=== PATIENT | female | born 1930 | race Two or more races ===

== ENCOUNTER 2021-11-08 22:03 | Inpatient (IN) | payer MEDICARE, OTHER ==
[~2021-11-08] VITALS: Ht 157.5 cm; Wt 72.2 kg
[2021-11-08] MEDS ORDERED: IV NS 1000 ML 1,000 ML IV ONE (22:15)
[2021-11-08 22:43] LABS: HEMATOCRIT 40.1 % (31.2-41.9); MEAN CORPUSCULAR HEMOGLOBIN 29.7 uug (24.7-32.8); MEAN CORPUSCULAR VOLUME 89.9 fL (75.5-95.3); PLATELET COUNT (AUTO) 161 K/uL (179-408)
[2021-11-08 22:55] LABS: ALANINE AMINOTRANSFERASE 18 U/L (14-59); ALKALINE PHOSPHATASE 139 U/L (50-136); ASPARTATE AMINOTRANSFERASE 11 U/L (15-37); BILIRUBIN,DIRECT 0.3 mg/dL (0.0-0.2); CARBON DIOXIDE 25 mmol/L (21-32); CHLORIDE 103 mmol/L (98-107); TOTAL PROTEIN, SERUM 7.4 g/dL (6.4-8.2); UREA NITROGEN, BLOOD 13 mg/dL (7-18)
[2021-11-08 22:58] LABS: MAGNESIUM 1.7 mg/dL (1.8-2.4)
[2021-11-08 23:09] LABS: GLUCOSE 317 mg/dL (74-106)
[2021-11-08] MEDS: MAGNESIUM SULFATE/D5W 100 ML IV SCH (23:15)
[2021-11-09] MEDS: MAGNESIUM SULFATE/D5W 100 ML IV SCH ×2 (00:15→01:15)
[2021-11-09] MEDS ORDERED: ATOR20TA PO ×2 (00:15→18:10)
[2021-11-09] MEDS ORDERED: OLME40TA12 PO ×2 (00:15→18:10)
[2021-11-09] MEDS ORDERED: OXYB10TA30 PO ×2 (00:15→18:10)
[2021-11-09] MEDS ORDERED: MAGNESIUM HYDROXIDE 30 ML LIQUID UDC PO PRN (00:30)
[2021-11-09] MEDS ORDERED: ONDANSETRON 4 MG/2 ML VIAL IV PRN (00:30)
[2021-11-09] MEDS ORDERED: IV NS 1000 ML 1,000 ML IV PRN (00:30)
[2021-11-09] MEDS ORDERED: REMEDY ESSENTIAL ZINC PASTE 113 GM TP PRN (00:30)
[2021-11-09] MEDS ORDERED: DILTIAZEM HCL 25 MG IV IV ONE (02:30)
[2021-11-09] MEDS ORDERED: DILTIAZEM HCL 25 MG IV ONE (02:35)
[2021-11-09] MEDS ORDERED: FUROSEMIDE 40 MG/4 ML VIAL ONE (02:39)
[2021-11-09] MEDS ORDERED: FUROSEMIDE 20 MG/2 ML VIAL ONE (02:40)
[2021-11-09] MEDS ORDERED: ONDANSETRON 4 MG/2 ML VIAL ONE (02:44)
[2021-11-09] MEDS ORDERED: MORPHINE SULFATE 2 MG/1 ML DISP.SYRIN ONE (02:44)
[2021-11-09] MEDS ORDERED: MORPHINE SULFATE 4 MG/1 ML DISP.SYRIN ONE (02:44)
[2021-11-09] MEDS ORDERED: FUROSEMIDE 20 MG/2 ML VIAL IV ONE (02:45)
[2021-11-09] MEDS ORDERED: MORPHINE SULFATE 4 MG/1 ML DISP.SYRIN IV ONE (02:45)
[2021-11-09] MEDS ORDERED: ONDANSETRON 4 MG/2 ML VIAL IV ONE (02:45)
[2021-11-09] MEDS ORDERED: ATORVASTATIN 20 MG TABLET PO SCH (09:00)
[2021-11-09] MEDS ORDERED: Medication Not On Formulary EA (Oxybutynin Chloride (Oxybutynin Chloride Er) 1 TAB) PO SCH (09:00)
[2021-11-09] MEDS ORDERED: LOSARTAN POTASSIUM 50 MG TABLET PO SCH (09:00)
[2021-11-09 09:47] LABS: *CLARITY,URINE CLEAR (CLEAR)
[2021-11-09 09:48] LABS: *BLOOD, URINE 1+ (NEGATIVE); *COLOR,URINE YELLOW (YELLOW); PH,URINE 5.5 (5.0-8.0); UGLUCOSE 2+ (NEGATIVE)
[2021-11-09 09:49] LABS: *BILIRUBIN,URIN NEGATIVE (NEGATIVE); *KETONES,URINE NEGATIVE (NEGATIVE); *UROBILINOGEN,URINE 0.2 E.U./dl (NORMAL); LEUKOCYTE ESTERASE ,URINE NEGATIVE (NEGATIVE); NITRITE, URINE POSITIVE (NEGATIVE)
[2021-11-09 09:58] VITALS: BP 122/57
[2021-11-09 09:58] LABS: BACTERIA,URINE MANY /HPF (NONE SEEN); SQUAMOUS EPITHELIAL CELL,UR FEW /HPF (NONE SEEN); WBC,URINE 0-3 /HPF (0-3)
[2021-11-09] MEDS: OXYBUTYNIN XL 5 MG TABSR PO SCH (10:21)
[2021-11-09] MEDS ORDERED: DEXTROSE 50% 50 ML DISP.SYRIN IV PRN (11:15)
[2021-11-09] MEDS ORDERED: FUROSEMIDE 40 MG/4 ML VIAL IV ONE (11:30)
[2021-11-09 11:46] LABS: CARBON DIOXIDE 26 mmol/L (21-32); CHLORIDE 100 mmol/L (98-107); POTASSIUM 4.2 mmol/L (3.5-5.1)
[2021-11-09 11:47] LABS: BILIRUBIN,TOTAL 1.5 mg/dL (0.2-1.0); CREATININE 1.1 mg/dL (0.6-1.3); GLUCOSE 393 mg/dL (74-106); UREA NITROGEN, BLOOD 14 mg/dL (7-18)
[2021-11-09 11:48] LABS: ALANINE AMINOTRANSFERASE 13 U/L (14-59); ALKALINE PHOSPHATASE 140 U/L (50-136); ASPARTATE AMINOTRANSFERASE 9 U/L (15-37); TOTAL PROTEIN, SERUM 7.5 g/dL (6.4-8.2)
[2021-11-09] MEDS: BLOOD SUGAR DIAGNOSTIC 1 EACH STRIP VI SCH ×3 (11:52→20:20)
[2021-11-09] MEDS: DILTIAZEM HCL 30 MG TABLET PO SCH ×2 (11:53→17:41)
[2021-11-09] MEDS: INSULIN REGULAR, HUMAN 300 UNIT/3 ML VIAL SQ PRN ×3 (11:54→20:27)
[2021-11-09 11:59] LABS: HEMATOCRIT 42.4 % (31.2-41.9); MEAN CORPUSCULAR HEMOGLOBIN 29.9 uug (24.7-32.8); MEAN CORPUSCULAR VOLUME 90.6 fL (75.5-95.3)
[2021-11-09 12:00] VITALS: BP 135/62
[2021-11-09 12:00] LABS: PLATELET COUNT (AUTO) 149 K/uL (179-408)
[2021-11-09] MEDS ORDERED: SWABABLE VALVE TRANSFER SET EA MC ONE (13:06)
[2021-11-09] MEDS ORDERED: IOHEXOL 350 100 ML INFUS..BTL ONE (13:06)
[2021-11-09] MEDS ORDERED: IV NORMAL SALINE 250 ML IV ONE (13:06)
[2021-11-09] MEDS: ENOXAPARIN SODIUM 40 MG/0.4 ML DISP.SYRIN SQ SCH (13:07)
[2021-11-09 15:39] VITALS: BP 117/50
[2021-11-09] MEDS ORDERED: SERT100T PO (18:09)
[2021-11-09] MEDS ORDERED: INSU100V7 SQ (18:09)
[2021-11-09] MEDS ORDERED: ALPR0.255 PO (18:09)
[2021-11-09] MEDS ORDERED: TRAM50TA2 PO (18:09)
[2021-11-09] MEDS ORDERED: EMPA10TA PO (18:10)
[2021-11-09] MEDS ORDERED: GLIP5TAB26 PO (18:10)
[2021-11-09] MEDS ORDERED: LIDO30AD10 TD (18:10)
[2021-11-09] MEDS ORDERED: ISOS60TA72 PO (18:10)
[2021-11-09] MEDS ORDERED: AMLO2.5T4 PO (18:10)
[2021-11-09] MEDS ORDERED: OMEP40CA21 PO (18:10)
[2021-11-09] MEDS ORDERED: CHOL500062 PO (18:10)
[2021-11-09 20:45] VITALS: BP 103/56
[2021-11-09] MEDS: ACETAMINOPHEN 325 MG TABLET PO PRN (23:02)
[2021-11-10] MEDS: DILTIAZEM HCL 30 MG TABLET PO SCH ×4 (00:41→17:20)
[2021-11-10 00:48] VITALS: BP 119/63
[2021-11-10] MEDS ORDERED: HYDROMORPHONE 1 MG/1 ML DISP.SYRIN IV PRN (01:30)
[2021-11-10] MEDS: HYDROCODONE/APAP 10-325 MG TABLET PO PRN ×2 (01:41→21:59)
[2021-11-10 04:48] VITALS: BP 117/69
[2021-11-10] MEDS: HYDROMORPHONE 1 MG/1 ML DISP.SYRIN IV PRN (05:52)
[2021-11-10 06:19] LABS: HEMATOCRIT 36.2 % (31.2-41.9); MEAN CORPUSCULAR HEMOGLOBIN 30.2 uug (24.7-32.8); MEAN CORPUSCULAR VOLUME 89.4 fL (75.5-95.3); PLATELET COUNT (AUTO) 124 K/uL (179-408)
[2021-11-10] MEDS: BLOOD SUGAR DIAGNOSTIC 1 EACH STRIP VI SCH ×4 (06:31→21:48)
[2021-11-10 06:32] LABS: CREATININE 1.2 mg/dL (0.6-1.3); MAGNESIUM 1.8 mg/dL (1.8-2.4); PHOSPHOROUS 3.6 mg/dL (2.5-4.9); POTASSIUM 3.5 mmol/L (3.5-5.1)
[2021-11-10] MEDS: INSULIN REGULAR, HUMAN 300 UNIT/3 ML VIAL SQ PRN ×4 (08:11→21:55)
[2021-11-10] MEDS: OXYBUTYNIN XL 5 MG TABSR PO SCH (08:47)
[2021-11-10] MEDS: ENOXAPARIN SODIUM 40 MG/0.4 ML DISP.SYRIN SQ SCH (08:48)
[2021-11-10] MEDS ORDERED: FUROSEMIDE 40 MG/4 ML VIAL IV ONE (10:30)
[2021-11-10 10:38] LABS: *BILIRUBIN,URIN 1+ (NEGATIVE); *BLOOD, URINE 2+ (NEGATIVE); *CLARITY,URINE CLOUDY (CLEAR); *COLOR,URINE YELLOW (YELLOW); *KETONES,URINE NEGATIVE (NEGATIVE); LEUKOCYTE ESTERASE ,URINE TRACE (NEGATIVE); NITRITE, URINE NEGATIVE (NEGATIVE); UGLUCOSE TRACE (NEGATIVE)
[2021-11-10 10:42] LABS: *CREATININE,URINE 118.8 mg/dL (30-125); *URINE TOTAL PROTEIN RANDOM 56.7 mg/dL (<150/24HR)
[2021-11-10 10:59] LABS: BACTERIA,URINE MODERATE /HPF (NONE SEEN)
[2021-11-10 11:00] LABS: SQUAMOUS EPITHELIAL CELL,UR FEW /HPF (NONE SEEN)
[2021-11-10 11:01] LABS: MUCUS,URINE NONE SEEN /LPF (0-FEW)
[2021-11-10 12:05] VITALS: BP 96/52
[2021-11-10 17:17] VITALS: BP 111/51
[2021-11-10 20:30] VITALS: BP 115/66
[2021-11-10] MEDS: ATORVASTATIN 20 MG TABLET PO SCH (21:53)
[2021-11-10] MEDS ORDERED: DEXTROSE 50% 50 ML DISP.SYRIN IV PRN (23:45)
[2021-11-11] VITALS (9 sets, daily range): BP systolic 94–140; BP diastolic 46–66
[2021-11-11] MEDS ORDERED: SUCCINYLCHOLINE CHLORIDE 200 MG/10 ML VIAL ONE
[2021-11-11] MEDS ORDERED: ONDANSETRON 4 MG/2 ML VIAL ONE
[2021-11-11] MEDS ORDERED: LIDOCAINE-MPF 2% 5 ML VIAL ONE
[2021-11-11] MEDS ORDERED: NEOSTIGMINE METHYLSULFATE 10 MG/10 ML VIAL ONE
[2021-11-11] MEDS ORDERED: DEXAMETHASONE SOD PHOSPHATE 4 MG INJ ONE
[2021-11-11] MEDS ORDERED: ETOMIDATE 20 MG/10 ML VIAL ONE
[2021-11-11] MEDS ORDERED: EPHEDRINE SULFATE 50 MG/ML AMPUL ONE
[2021-11-11] MEDS: DILTIAZEM HCL 30 MG TABLET PO SCH ×5 (00:29→23:17)
[2021-11-11] MEDS: ACETAMINOPHEN 325 MG TABLET PO PRN (05:13)
[2021-11-11] MEDS: INSULIN REGULAR, HUMAN 300 UNIT/3 ML VIAL SQ PRN ×4 (05:17→20:08)
[2021-11-11] MEDS: BLOOD SUGAR DIAGNOSTIC 1 EACH STRIP VI SCH ×4 (05:32→20:11)
[2021-11-11] MEDS: HYDROMORPHONE 1 MG/1 ML DISP.SYRIN IV PRN (06:17)
[2021-11-11 06:42] LABS: HEMATOCRIT 35.3 % (31.2-41.9); MEAN CORPUSCULAR HEMOGLOBIN 29.8 uug (24.7-32.8); MEAN CORPUSCULAR VOLUME 88.9 fL (75.5-95.3); PLATELET COUNT (AUTO) 121 K/uL (179-408)
[2021-11-11 07:09] LABS: CREATININE 0.8 mg/dL (0.6-1.3); MAGNESIUM 1.9 mg/dL (1.8-2.4); PHOSPHOROUS 3.5 mg/dL (2.5-4.9)
[2021-11-11] MEDS: OXYBUTYNIN XL 5 MG TABSR PO SCH (09:00)
[2021-11-11] MEDS: ENOXAPARIN SODIUM 40 MG/0.4 ML DISP.SYRIN SQ SCH (09:00)
[2021-11-11] MEDS ORDERED: VANCOMYCIN 1000 MG VIAL ONE (10:31)
[2021-11-11] MEDS ORDERED: FENTANYL CITRATE 100 MCG/2 ML AMPUL ONE (12:34)
[2021-11-11] MEDS ORDERED: ROCURONIUM BROMIDE 50 MG/5 ML VIAL ONE (12:34)
[2021-11-11] MEDS ORDERED: IV D5W-0.45% NS +20 KCL 1,000 ML IV ONE (14:56)
[2021-11-11] MEDS ORDERED: DEXTROSE 50% 50 ML DISP.SYRIN IV PRN (19:35)
[2021-11-11] MEDS: CEFAZOLIN 1 G in IV DEXTROSE 5% 50 ML IV SCH (20:07)
[2021-11-11] MEDS: ATORVASTATIN 20 MG TABLET PO SCH (20:07)
[2021-11-11] MEDS ORDERED: INSULIN GLARGINE,HUM 300 UNITS/3 ML CARTRIDGE SQ SCH (21:00)
[2021-11-12] VITALS: BP 100/50
[2021-11-12 04:00] VITALS: BP 126/60
[2021-11-12] MEDS: CEFAZOLIN 1 G in IV DEXTROSE 5% 50 ML IV SCH (05:29)
[2021-11-12] MEDS: DILTIAZEM HCL 30 MG TABLET PO SCH ×3 (05:30→17:05)
[2021-11-12 06:11] LABS: HEMATOCRIT 33.6 % (31.2-41.9); MEAN CORPUSCULAR VOLUME 89.6 fL (75.5-95.3); PLATELET COUNT (AUTO) 123 K/uL (179-408)
[2021-11-12] MEDS: IV D5W-0.45% NS +20 KCL 1,000 ML IV PRN ×2 (06:30→22:53)
[2021-11-12] MEDS: BLOOD SUGAR DIAGNOSTIC 1 EACH STRIP VI SCH ×4 (06:31→21:25)
[2021-11-12 07:30] LABS: CREATININE 0.9 mg/dL (0.6-1.3); MAGNESIUM 1.9 mg/dL (1.8-2.4); PHOSPHOROUS 3.9 mg/dL (2.5-4.9); POTASSIUM 4.8 mmol/L (3.5-5.1)
[2021-11-12 08:00] VITALS: BP 136/60
[2021-11-12] MEDS ORDERED: glipiZIDE XL 5 MG TABCR PO SCH (08:00)
[2021-11-12] MEDS: ENOXAPARIN SODIUM 40 MG/0.4 ML DISP.SYRIN SQ SCH (08:28)
[2021-11-12] MEDS: INSULIN REGULAR, HUMAN 300 UNIT/3 ML VIAL SQ PRN ×3 (08:29→16:02)
[2021-11-12] MEDS: SERTRALINE HCL 100 MG TABLET PO SCH (08:30)
[2021-11-12] MEDS: OXYBUTYNIN XL 5 MG TABSR PO SCH (08:30)
[2021-11-12] MEDS: ISOSORBIDE MONONITRATE 60 MG TAB.SR.24H PO SCH (08:30)
[2021-11-12] MEDS ORDERED: AMLODIPINE 2.5 MG TABLET PO SCH (09:00)
[2021-11-12] MEDS ORDERED: INSULIN GLARGINE,HUM 300 UNITS/3 ML CARTRIDGE SQ ONE (09:30)
[2021-11-12 11:57] VITALS: BP 101/53
[2021-11-12] MEDS: NITROFURANTOIN/NITROFURAN MAC 100 MG CAPSULE PO SCH ×2 (15:53→21:22)
[2021-11-12 16:23] VITALS: BP 130/52
[2021-11-12] MEDS: ALPRAZOLAM 0.25 MG TABLET PO PRN ×2 (16:54→20:26)
[2021-11-12 20:22] VITALS: BP 106/51
[2021-11-12] MEDS: MORPHINE SULFATE 2 MG/1 ML DISP.SYRIN IV PRN (20:29)
[2021-11-12] MEDS ORDERED: LORAZEPAM 2 MG/1 ML VIAL IV PRN (21:00)
[2021-11-12] MEDS ORDERED: ALPRAZOLAM 0.25 MG TABLET PO ONE (21:00)
[2021-11-12] MEDS: ATORVASTATIN 20 MG TABLET PO SCH (21:21)
[2021-11-12] MEDS: METOPROLOL TARTRATE 25 MG TABLET PO SCH (21:22)
[2021-11-12] MEDS: INSULIN GLARGINE,HUM 300 UNITS/3 ML CARTRIDGE SQ SCH (21:25)
[2021-11-12] MEDS ORDERED: AMIODARONE HCL IV 150 MG in IV DEXTROSE 5% 100 ML IV ONE (21:45)
[2021-11-12] MEDS ORDERED: AMIODARONE HCL IV 450 MG in IV DEXTROSE 5% 250 ML IV PRN (21:45)
[2021-11-12] MEDS ORDERED: AMIODARONE HCL 150 MG/3 ML VIAL IV ONE ×2 (22:14→22:15)
[2021-11-12] MEDS: AMIODARONE HCL IV 450 MG in IV DEXTROSE 5% 250 ML IV PRN (23:08)
[2021-11-13] VITALS: BP 130/77
[2021-11-13 05:00] VITALS: BP 129/68
[2021-11-13] MEDS ORDERED: AMIODARONE HCL 150 MG/3 ML VIAL IV ONE (05:30)
[2021-11-13] MEDS: BLOOD SUGAR DIAGNOSTIC 1 EACH STRIP VI SCH ×4 (06:41→20:16)
[2021-11-13 07:45] VITALS: BP 135/77
[2021-11-13] MEDS: INSULIN REGULAR, HUMAN 300 UNIT/3 ML VIAL SQ PRN ×3 (08:33→20:17)
[2021-11-13] MEDS: SERTRALINE HCL 100 MG TABLET PO SCH (08:34)
[2021-11-13] MEDS: OXYBUTYNIN XL 5 MG TABSR PO SCH (08:34)
[2021-11-13] MEDS: NITROFURANTOIN/NITROFURAN MAC 100 MG CAPSULE PO SCH ×2 (08:34→20:15)
[2021-11-13] MEDS: ISOSORBIDE MONONITRATE 60 MG TAB.SR.24H PO SCH (08:36)
[2021-11-13] MEDS: METOPROLOL TARTRATE 25 MG TABLET PO SCH ×2 (08:36→20:16)
[2021-11-13] MEDS: ENOXAPARIN SODIUM 40 MG/0.4 ML DISP.SYRIN SQ SCH (08:37)
[2021-11-13] MEDS: INSULIN GLARGINE,HUM 300 UNITS/3 ML CARTRIDGE SQ SCH ×2 (09:15→20:17)
[2021-11-13 10:02] LABS: HEMATOCRIT 31.3 % (31.2-41.9); MEAN CORPUSCULAR HEMOGLOBIN 30.3 uug (24.7-32.8); MEAN CORPUSCULAR VOLUME 90.2 fL (75.5-95.3); PLATELET COUNT (AUTO) 141 K/uL (179-408)
[2021-11-13 10:45] LABS: BILIRUBIN,TOTAL 1.2 mg/dL (0.2-1.0); MAGNESIUM 1.9 mg/dL (1.8-2.4); POTASSIUM 5.2 mmol/L (3.5-5.1); TOTAL PROTEIN, SERUM 6.6 g/dL (6.4-8.2)
[2021-11-13 11:53] VITALS: BP 106/65
[2021-11-13 15:40] VITALS: BP 125/72
[2021-11-13 20:00] VITALS: BP 148/72
[2021-11-13] MEDS: ATORVASTATIN 20 MG TABLET PO SCH (20:15)
[2021-11-13] MEDS: AMIODARONE HCL IV 450 MG in IV DEXTROSE 5% 250 ML IV PRN (20:48)
[2021-11-14 00:15] VITALS: BP 147/87
[2021-11-14] MEDS: MORPHINE SULFATE 2 MG/1 ML DISP.SYRIN IV PRN (03:06)
[2021-11-14 04:34] VITALS: BP 130/64
[2021-11-14] MEDS: BLOOD SUGAR DIAGNOSTIC 1 EACH STRIP VI SCH ×4 (06:36→20:12)
[2021-11-14 07:06] LABS: HEMATOCRIT 32.5 % (31.2-41.9); MEAN CORPUSCULAR VOLUME 88.8 fL (75.5-95.3); PLATELET COUNT (AUTO) 178 K/uL (179-408)
[2021-11-14 07:20] LABS: CREATININE 0.9 mg/dL (0.6-1.3); PHOSPHOROUS 3.2 mg/dL (2.5-4.9); POTASSIUM 4.8 mmol/L (3.5-5.1)
[2021-11-14 07:46] VITALS: BP 125/65
[2021-11-14] MEDS: ISOSORBIDE MONONITRATE 60 MG TAB.SR.24H PO SCH (09:06)
[2021-11-14] MEDS: NITROFURANTOIN/NITROFURAN MAC 100 MG CAPSULE PO SCH ×2 (09:06→20:12)
[2021-11-14] MEDS: METOPROLOL TARTRATE 25 MG TABLET PO SCH (09:07)
[2021-11-14] MEDS: SERTRALINE HCL 100 MG TABLET PO SCH (09:08)
[2021-11-14] MEDS: METHIMAZOLE 5 MG TABLET PO SCH (09:08)
[2021-11-14] MEDS: ENOXAPARIN SODIUM 40 MG/0.4 ML DISP.SYRIN SQ SCH (09:14)
[2021-11-14] MEDS: INSULIN GLARGINE,HUM 300 UNITS/3 ML CARTRIDGE SQ SCH ×2 (09:15→20:13)
[2021-11-14] MEDS: OXYBUTYNIN XL 5 MG TABSR PO SCH (09:15)
[2021-11-14 11:00] VITALS: BP 145/74
[2021-11-14] MEDS: AMIODARONE HCL IV 450 MG in IV DEXTROSE 5% 250 ML IV PRN (12:13)
[2021-11-14] MEDS: GLUCERNA SHAKE 237 ML CAN PO SCH ×2 (12:14→16:28)
[2021-11-14] MEDS: INSULIN REGULAR, HUMAN 300 UNIT/3 ML VIAL SQ PRN ×2 (12:20→17:00)
[2021-11-14 13:01] LABS: *BILIRUBIN,URIN NEGATIVE (NEGATIVE); *BLOOD, URINE 2+ (NEGATIVE); *CLARITY,URINE CLEAR (CLEAR); *COLOR,URINE YELLOW (YELLOW); *KETONES,URINE NEGATIVE (NEGATIVE); LEUKOCYTE ESTERASE ,URINE TRACE (NEGATIVE); NITRITE, URINE NEGATIVE (NEGATIVE); PH,URINE 5.5 (5.0-8.0); UGLUCOSE NEGATIVE (NEGATIVE)
[2021-11-14] MEDS: METOPROLOL TARTRATE 50 MG TABLET PO SCH ×2 (14:46→21:37)
[2021-11-14 14:58] LABS: BACTERIA,URINE FEW /HPF (NONE SEEN); CALCIUM OXALATE CRYSTALS,UR FEW /HPF (NONE SEEN); SQUAMOUS EPITHELIAL CELL,UR FEW /HPF (NONE SEEN)
[2021-11-14 15:37] VITALS: BP 110/61
[2021-11-14] MEDS ORDERED: BISACODYL 10 MG SUPP.RECT RC PRN (19:30)
[2021-11-14 20:06] VITALS: BP 127/47
[2021-11-14] MEDS: ATORVASTATIN 20 MG TABLET PO SCH (20:12)
[2021-11-15] VITALS: BP 145/73
[2021-11-15 04:00] VITALS: BP 163/81
[2021-11-15] MEDS: METOPROLOL TARTRATE 50 MG TABLET PO SCH ×3 (05:24→21:14)
[2021-11-15] MEDS: BLOOD SUGAR DIAGNOSTIC 1 EACH STRIP VI SCH ×4 (06:33→20:27)
[2021-11-15 07:10] LABS: HEMATOCRIT 34.9 % (31.2-41.9); MEAN CORPUSCULAR HEMOGLOBIN 29.9 uug (24.7-32.8); MEAN CORPUSCULAR VOLUME 89.1 fL (75.5-95.3); PLATELET COUNT (AUTO) 257 K/uL (179-408)
[2021-11-15 07:37] LABS: CREATININE 0.8 mg/dL (0.6-1.3); PHOSPHOROUS 3.9 mg/dL (2.5-4.9); POTASSIUM 4.6 mmol/L (3.5-5.1)
[2021-11-15] MEDS: GLUCERNA SHAKE 237 ML CAN PO SCH ×3 (09:47→16:52)
[2021-11-15] MEDS: METHIMAZOLE 5 MG TABLET PO SCH (09:48)
[2021-11-15] MEDS: NITROFURANTOIN/NITROFURAN MAC 100 MG CAPSULE PO SCH ×2 (09:48→20:27)
[2021-11-15] MEDS: OXYBUTYNIN XL 5 MG TABSR PO SCH (09:48)
[2021-11-15] MEDS: SERTRALINE HCL 100 MG TABLET PO SCH (09:48)
[2021-11-15] MEDS: ISOSORBIDE MONONITRATE 60 MG TAB.SR.24H PO SCH (09:48)
[2021-11-15] MEDS: ENOXAPARIN SODIUM 40 MG/0.4 ML DISP.SYRIN SQ SCH (09:52)
[2021-11-15] MEDS: INSULIN GLARGINE,HUM 300 UNITS/3 ML CARTRIDGE SQ SCH ×2 (09:52→20:28)
[2021-11-15] MEDS: HYDROCODONE/APAP 5-325MG TABLET PO PRN (10:11)
[2021-11-15 12:49] VITALS: BP 152/66
[2021-11-15 15:39] VITALS: BP 149/70
[2021-11-15] MEDS: ATORVASTATIN 20 MG TABLET PO SCH (20:27)
[2021-11-15 20:43] VITALS: BP 126/46
[2021-11-16 00:15] VITALS: BP 148/68
[2021-11-16 04:21] VITALS: BP 158/72
[2021-11-16] MEDS: METOPROLOL TARTRATE 50 MG TABLET PO SCH ×3 (05:02→14:18)
[2021-11-16 06:32] LABS: HEMATOCRIT 33.2 % (31.2-41.9); MEAN CORPUSCULAR HEMOGLOBIN 30.1 uug (24.7-32.8); MEAN CORPUSCULAR VOLUME 88.9 fL (75.5-95.3); PLATELET COUNT (AUTO) 266 K/uL (179-408)
[2021-11-16 06:45] LABS: CREATININE 0.6 mg/dL (0.6-1.3); PHOSPHOROUS 3.9 mg/dL (2.5-4.9); POTASSIUM 4.1 mmol/L (3.5-5.1)
[2021-11-16] MEDS: BLOOD SUGAR DIAGNOSTIC 1 EACH STRIP VI SCH ×4 (06:50→20:32)
[2021-11-16] MEDS: GLUCERNA SHAKE 237 ML CAN PO SCH ×3 (08:00→17:11)
[2021-11-16] MEDS: NITROFURANTOIN/NITROFURAN MAC 100 MG CAPSULE PO SCH ×2 (09:05→20:20)
[2021-11-16] MEDS: SERTRALINE HCL 100 MG TABLET PO SCH (09:05)
[2021-11-16] MEDS: OXYBUTYNIN XL 5 MG TABSR PO SCH (09:05)
[2021-11-16] MEDS: ISOSORBIDE MONONITRATE 60 MG TAB.SR.24H PO SCH (09:12)
[2021-11-16] MEDS: INSULIN GLARGINE,HUM 300 UNITS/3 ML CARTRIDGE SQ SCH ×2 (09:14→20:33)
[2021-11-16] MEDS: METHIMAZOLE 5 MG TABLET PO SCH (09:17)
[2021-11-16] MEDS: ENOXAPARIN SODIUM 40 MG/0.4 ML DISP.SYRIN SQ SCH (09:17)
[2021-11-16 11:58] VITALS: BP 123/63
[2021-11-16 16:43] VITALS: BP 135/69
[2021-11-16] MEDS: ATORVASTATIN 20 MG TABLET PO SCH (20:20)
[2021-11-16 20:23] VITALS: BP 158/69
[2021-11-17 00:14] VITALS: BP 146/60
[2021-11-17 04:41] VITALS: BP 126/69
[2021-11-17] MEDS: METOPROLOL TARTRATE 50 MG TABLET PO SCH ×4 (06:07→21:03)
[2021-11-17] MEDS: BLOOD SUGAR DIAGNOSTIC 1 EACH STRIP VI SCH ×4 (07:01→20:53)
[2021-11-17] MEDS: OXYBUTYNIN XL 5 MG TABSR PO SCH (08:44)
[2021-11-17] MEDS: ISOSORBIDE MONONITRATE 60 MG TAB.SR.24H PO SCH (08:44)
[2021-11-17] MEDS: SERTRALINE HCL 100 MG TABLET PO SCH (08:45)
[2021-11-17] MEDS: ENOXAPARIN SODIUM 40 MG/0.4 ML DISP.SYRIN SQ SCH (08:47)
[2021-11-17] MEDS: GLUCERNA SHAKE 237 ML CAN PO SCH ×3 (08:52→17:10)
[2021-11-17] MEDS: INSULIN GLARGINE,HUM 300 UNITS/3 ML CARTRIDGE SQ SCH ×2 (09:00→21:00)
[2021-11-17] MEDS: LOSARTAN POTASSIUM 25 MG TABLET PO SCH (10:12)
[2021-11-17] MEDS: APIXABAN 5 MG TABLET PO SCH ×2 (10:12→21:02)
[2021-11-17] MEDS: METHIMAZOLE 5 MG TABLET PO SCH (10:18)
[2021-11-17 12:10] VITALS: BP 115/49
[2021-11-17] MEDS: FLUCONAZOLE 200 MG TABLET PO SCH (15:52)
[2021-11-17] MEDS: INSULIN REGULAR, HUMAN 300 UNIT/3 ML VIAL SQ PRN (16:27)
[2021-11-17 17:22] VITALS: BP 133/48
[2021-11-17 20:13] VITALS: BP 132/53
[2021-11-17] MEDS: ATORVASTATIN 20 MG TABLET PO SCH (21:02)
[2021-11-18 00:20] VITALS: BP 129/74
[2021-11-18] MEDS: MORPHINE SULFATE 2 MG/1 ML DISP.SYRIN IV PRN (01:01)
[2021-11-18 04:21] VITALS: BP 120/55
[2021-11-18] MEDS: METOPROLOL TARTRATE 50 MG TABLET PO SCH ×2 (06:37→14:00)
[2021-11-18 06:44] LABS: HEMATOCRIT 29.5 % (31.2-41.9); MEAN CORPUSCULAR HEMOGLOBIN 31.2 uug (24.7-32.8); MEAN CORPUSCULAR VOLUME 90.9 fL (75.5-95.3); PLATELET COUNT (AUTO) 300 K/uL (179-408)
[2021-11-18 06:50] LABS: CARBON DIOXIDE 31 mmol/L (21-32); CHLORIDE 94 mmol/L (98-107); CREATININE 0.7 mg/dL (0.6-1.3); GLUCOSE 64 mg/dL (74-106); MAGNESIUM 1.8 mg/dL (1.8-2.4); PHOSPHOROUS 3.3 mg/dL (2.5-4.9); POTASSIUM 4.2 mmol/L (3.5-5.1); UREA NITROGEN, BLOOD 20 mg/dL (7-18); URIC ACID 2.4 mg/dL (2.6-6.0)
[2021-11-18 07:04] LABS: THYROID STIMULATING HORMONE < 0.007 mIU/mL (0.358-3.740)
[2021-11-18] MEDS: OXYBUTYNIN XL 5 MG TABSR PO SCH (08:24)
[2021-11-18] MEDS: APIXABAN 5 MG TABLET PO SCH (08:25)
[2021-11-18] MEDS: METHIMAZOLE 5 MG TABLET PO SCH (08:25)
[2021-11-18] MEDS: ISOSORBIDE MONONITRATE 60 MG TAB.SR.24H PO SCH (08:25)
[2021-11-18] MEDS: SERTRALINE HCL 100 MG TABLET PO SCH (08:26)
[2021-11-18] MEDS: LOSARTAN POTASSIUM 25 MG TABLET PO SCH (08:26)
[2021-11-18] MEDS: HYDROCODONE/APAP 5-325MG TABLET PO PRN ×2 (08:26→17:44)
[2021-11-18] MEDS: GLUCERNA SHAKE 237 ML CAN PO SCH ×3 (08:27→17:44)
[2021-11-18] MEDS: BLOOD SUGAR DIAGNOSTIC 1 EACH STRIP VI SCH ×3 (08:27→17:44)
[2021-11-18] MEDS: INSULIN GLARGINE,HUM 300 UNITS/3 ML CARTRIDGE SQ SCH (08:28)
[2021-11-18 12:05] VITALS: BP 119/55
[2021-11-18] MEDS ORDERED: Insulin Glargine,Hum SQ ×2 (16:18)
[2021-11-18] MEDS ORDERED: NUT.237L36 PO (16:18)
[2021-11-18] MEDS ORDERED: LOSA25TA27 PO (16:18)
[2021-11-18] MEDS ORDERED: METO50TA16 PO (16:18)
[2021-11-18] MEDS ORDERED: METH5TAB34 PO (16:18)
[2021-11-18] MEDS ORDERED: APIX5TAB PO (16:18)
[2021-11-18 16:44] VITALS: BP 109/52
[2021-11-18] MEDS: FLUCONAZOLE 200 MG TABLET PO SCH (17:44)
[2021-11-18] MEDS: INSULIN REGULAR, HUMAN 300 UNIT/3 ML VIAL SQ PRN (17:46)
== END 2021-11-18 20:05 | DRG 480 ==
LOC: ER 22:03 → TELE3 11-09 08:06 → TELE-TD3 11-09 09:40 → TELE3 11-09 10:40 → TELE-TD3 11-12 21:00 → TELE3 11-14 16:45
PROVIDERS: ATTEND Registered Nurse
PROC: 5A09357 Assistance with Respiratory Ventilation, Less than 24 Consecutive Hours, Continuous Positive Airway Pressure (ICD-10-PCS; 2021-11-09)
PROC: 0QS606Z Reposition Right Upper Femur with Intramedullary Internal Fixation Device, Open Approach (ICD-10-PCS; principal; 2021-11-11)
DX: S72.144A Nondisplaced intertrochanteric fracture of right femur, initial encounter for closed fracture (principal); I50.41 Acute combined systolic (congestive) and diastolic (congestive) heart failure; J96.01 Acute respiratory failure with hypoxia; N17.0 Acute kidney failure with tubular necrosis; D68.59 Other primary thrombophilia; N39.0 Urinary tract infection, site not specified; I13.0 Hypertensive heart and chronic kidney disease with heart failure and stage 1 through stage 4 chronic kidney disease, or unspecified chronic kidney disease; E22.2 Syndrome of inappropriate secretion of antidiuretic hormone; B37.49 Other urogenital candidiasis; E83.42 Hypomagnesemia; E78.5 Hyperlipidemia, unspecified; I44.7 Left bundle-branch block, unspecified; I48.91 Unspecified atrial fibrillation; E80.6 Other disorders of bilirubin metabolism; Z74.09 Other reduced mobility; E11.65 Type 2 diabetes mellitus with hyperglycemia; E11.22 Type 2 diabetes mellitus with diabetic chronic kidney disease; K59.00 Constipation, unspecified; B96.20 Unspecified Escherichia coli [E. coli] as the cause of diseases classified elsewhere; E66.9 Obesity, unspecified; Z68.29 Body mass index [BMI] 29.0-29.9, adult; E05.90 Thyrotoxicosis, unspecified without thyrotoxic crisis or storm; Z79.4 Long term (current) use of insulin; Z79.84 Long term (current) use of oral hypoglycemic drugs; W18.30XA Fall on same level, unspecified, initial encounter; Y93.9 Activity, unspecified; Y92.009 Unspecified place in unspecified non-institutional (private) residence as the place of occurrence of the external cause; N18.9 Chronic kidney disease, unspecified
CPT/HCPCS: 36415; 51702; 71045; 71275; 72170; 73502; 73503; 83735; 84100; 84156; 84300; 84443; 84484; 84550; 85025; 85730; 86850; 86900; 86901; 87077; 87086; 93005; 93307; 94660; 97161; A4649; A4663; A6209; C1713; C1769; G0378; J0282; J0330; J0690; J1100; J1170; J1650; J1815; J1940; J2060; J2270; J2405; J3010; J3370; J3490; J7040; J7050; J8499; Q9967